=== PATIENT | male | born 1935 | race Two or more races ===

== ENCOUNTER 2023-10-08 10:52 | Inpatient (IN) | payer OTHER ==
[~2023-10-08] VITALS: Ht 167.6 cm; Wt 67.1 kg
[2023-10-08] MEDS ORDERED: HYZAAR 100-12.1 EACH PO (11:02)
[2023-10-08] MEDS ORDERED: ZETIA10 MG PO (11:02)
[2023-10-08] MEDS ORDERED: ZOCOR40 MG PO (11:02)
[2023-10-08] MEDS ORDERED: ADULT LOW DOSE81 M1 (11:02)
[2023-10-08] MEDS ORDERED: LABETALOL HCL100 MG PO (11:02)
[2023-10-08] MEDS ORDERED: 0.9 % SODIUM CHLORIDE 1,000 ML IV SCH (11:30)
[2023-10-08 12:01] LABS: HEMOGLOBIN 12.6 g/dL (13-16.00); MEAN CORPUSCULAR HEMOGLOBIN 30.9 pg (27.00-32.0); PLATELET COUNT 193 K/uL (150-450); RED BLOOD COUNT 4.06 M/uL (4.00-6.00); RED CELL DISTRIBUTION WIDTH 13.6 % (11.5-14.5)
[2023-10-08 12:27] LABS: PARTIAL THROMBOPLASTIN TIME 27.5 SECONDS (22.0-34.0); PROTHROMBIN TIME 10.5 SECONDS (9.0-11.5)
[2023-10-08 12:31] LABS: ALBUMIN 3.9 gm/dL (3.4-5.0); CALCIUM 9.4 mg/dL (8.5-10.1); CREATININE SERUM 1.41 mg/dL (0.70-1.30); GFR 47.43; GLOBULINA 2.9 G/DL (2.4-3.5); POTASSIUM 3.51 mEq/L (3.5-5.1); TOTAL PROTEIN 6.8 gm/dL (6.4-8.2)
[2023-10-08] MEDS ORDERED: RINGERS SOLUTION,LACTATED 1,000 ML IV SCH (13:00)
[2023-10-08 13:48] LABS: PH,URINE 5.5 (5.0-8.0); URINE APPEARANCE Cloudy; URINE BILIRRUBIN Negative (NEGATIVE); URINE BLOOD Negative; URINE COLOR Yellow; URINE GLUCOSE Negative (NEGATIVE); URINE LEUKOCYTE Negative; URINE NITRATE Negative; URINE PROTEIN Negative (NEGATIVE); URINE UROBILINOGEN 0.2 E.U./dl
[2023-10-08 13:49] LABS: URINE BACTERIA 8.8 uL (0.0-1933); URINE EPITHELIAL CELLS 9.8 uL (0.0-38.8); URINE RBC 4.3 uL (0.0-20.8); URINE WBC 2.6 uL (0.0-23.2)
[2023-10-08 14:57] LABS: COL ADP 143 SECONDS (56-102); COL EPI 239 SECONDS (82-175)
[2023-10-08] MEDS ORDERED: SIMVASTATIN 40 MG TABLET PO SCH (17:00)
[2023-10-08] MEDS ORDERED: FAMOTIDINE/PF 20 MG in 0.9 % SODIUM CHLORIDE 8 ML IV PUSH SCH (21:00)
[2023-10-08] MEDS ORDERED: LABETALOL HCL 100 MG TABLET PO SCH (21:00)
[2023-10-09 06:47] LABS: HEMATOCRIT 32.4 % (39.0-48.0); HEMOGLOBIN 11.2 g/dL (13-16.00); MEAN CELL VOLUME 91.8 fL (80.0-100.00); MEAN CORPUSCULAR HEMOGLOBIN 31.7 pg (27.00-32.0); MEAN CORPUSCULAR HGB CONC 34.5 g/dl (32.0-36.0); PLATELET COUNT 176 K/uL (150-450); RED BLOOD COUNT 3.53 M/uL (4.00-6.00); RED CELL DISTRIBUTION WIDTH 13.2 % (11.5-14.5)
[2023-10-09] MEDS ORDERED: FAMOTIDINE/PF 20 MG/2 ML VIAL ONE (06:48)
[2023-10-09 07:01] LABS: CALCIUM 9.1 mg/dL (8.5-10.1); CREATININE SERUM 1.24 mg/dL (0.70-1.30); GFR 55.02; MAGNESIUM 2.3 mg/dL (1.8-2.4); PHOSPHOROUS 2.9 mg/dL (2.5-4.9); POTASSIUM 3.7 mEq/L (3.5-5.1)
[2023-10-09] MEDS ORDERED: LOSARTAN/HYDROCHLOROTHIAZIDE 1 TAB TABLET PO SCH (09:00)
[2023-10-09] MEDS ORDERED: FAMOTIDINE/PF 20 MG in 0.9 % SODIUM CHLORIDE 8 ML IV PUSH SCH (09:00)
[2023-10-09] MEDS ORDERED: SOD FERRIC GLUC COMPLX/SUCROSE 62.5 MG in 0.9 % SODIUM CHLORIDE 50 ML IV SCH (09:00)
[2023-10-09] MEDS ORDERED: Cyanocobalamin/Mecobalamin 1 TAB.SL SL SCH (09:00)
[2023-10-09] MEDS ORDERED: SODIUM CHLORIDE 0.45 % 1,000 ML IV SCH (09:30)
[2023-10-10 08:57] LABS: COL EPI 226 SECONDS (82-175)
[2023-10-10] MEDS ORDERED: ONDANSETRON HCL 2 MG/ML VIAL IV PRN (12:00)
[2023-10-11 06:53] LABS: HEMATOCRIT 33.4 % (39.0-48.0); HEMOGLOBIN 11.5 g/dL (13-16.00); MEAN CELL VOLUME 91.6 fL (80.0-100.00); MEAN CORPUSCULAR HEMOGLOBIN 31.5 pg (27.00-32.0); MEAN CORPUSCULAR HGB CONC 34.4 g/dl (32.0-36.0); PLATELET COUNT 161 K/uL (150-450); RED BLOOD COUNT 3.65 M/uL (4.00-6.00); RED CELL DISTRIBUTION WIDTH 13.5 % (11.5-14.5)
[2023-10-11 07:01] LABS: CALCIUM 8.7 mg/dL (8.5-10.1); CREATININE SERUM 1.22 mg/dL (0.70-1.30); GFR 56.06; MAGNESIUM 1.7 mg/dL (1.8-2.4); PHOSPHOROUS 3.4 mg/dL (2.5-4.9); POTASSIUM 3.91 mEq/L (3.5-5.1)
[2023-10-11 07:35] LABS: COL EPI 145 SECONDS (82-175)
[2023-10-11] MEDS ORDERED: SOD FERRIC GLUC COMPLX/SUCROSE 62.5 MG/5 ML AMPUL IV ONE (07:56)
[2023-10-11] MEDS ORDERED: MAGNESIUM SULFATE IN WATER 50 ML IV ONE (10:15)
[2023-10-12] MEDS ORDERED: CEFTRIAXONE SODIUM 2,000 MG VIAL ONE (09:47)
[2023-10-12] MEDS ORDERED: METRONIDAZOLE/SODIUM CHLORIDE 500 MG/100 ML PIGGYBACK IV ONE (09:47)
[2023-10-12] MEDS ORDERED: CEFTRIAXONE SODIUM 2,000 MG in 0.9 % SODIUM CHLORIDE 50 ML IV ONE (10:00)
[2023-10-12] MEDS ORDERED: METRONIDAZOLE/SODIUM CHLORIDE 200 ML IV ONE (10:00)
[2023-10-12] MEDS ORDERED: LACTOBACILLUS ACIDOPHILUS 1 CAP CAP PO SCH (11:12)
[2023-10-12] MEDS ORDERED: TAMSULOSIN HCL 0.4 MG CAP PO SCH (11:12)
[2023-10-12] MEDS ORDERED: MORPHINE SULFATE 4 MG/ML CARTRIDGE IV PRN (11:15)
[2023-10-12] MEDS ORDERED: OxyCODONE HCL 5 MG TABLET (ROXICODONE) PO PRN (11:15)
[2023-10-12] MEDS ORDERED: SUGAMMADEX SODIUM 200 MG/2 ML VIAL IV ONE ×2 (11:16→11:30)
[2023-10-12] MEDS ORDERED: ACETAMINOPHEN 500 MG GEL..CAP PO SCH (12:00)
[2023-10-12] MEDS ORDERED: HYOSCYAMINE SULFATE 0.125 MG TAB.SUBL SL SCH (13:00)
[2023-10-12] MEDS ORDERED: ONDANSETRON HCL 2 MG/ML VIAL ONE (13:18)
[2023-10-12] MEDS ORDERED: GABAPENTIN 300 MG CAPSULE PO SCH (17:00)
[2023-10-12] MEDS ORDERED: METRONIDAZOLE/SODIUM CHLORIDE 500 MG/100 ML PIGGYBACK IV SCH (17:00)
[2023-10-12] MEDS ORDERED: CIPROFLOXACIN IN 5 % DEXTROSE 400 MG/200 ML PIGGYBAG IV SCH (21:00)
[2023-10-13 07:39] LABS: HEMATOCRIT 31.2 % (39.0-48.0); HEMOGLOBIN 10.7 g/dL (13-16.00); MEAN CORPUSCULAR HEMOGLOBIN 31.1 pg (27.00-32.0); MEAN CORPUSCULAR HGB CONC 34.2 g/dl (32.0-36.0); PLATELET COUNT 152 K/uL (150-450); RED BLOOD COUNT 3.43 M/uL (4.00-6.00); RED CELL DISTRIBUTION WIDTH 13.5 % (11.5-14.5)
[2023-10-13 07:54] LABS: ALBUMIN 3.3 gm/dL (3.4-5.0); CALCIUM 8.4 mg/dL (8.5-10.1); CREATININE SERUM 1.55 mg/dL (0.70-1.30); GFR 42.53; MAGNESIUM 2.2 mg/dL (1.8-2.4); PHOSPHOROUS 4.6 mg/dL (2.5-4.9); POTASSIUM 3.98 mEq/L (3.5-5.1)
[2023-10-14 07:06] LABS: CALCIUM 8.3 mg/dL (8.5-10.1); CREATININE SERUM 1.48 mg/dL (0.70-1.30); GFR 44.86; MAGNESIUM 2.1 mg/dL (1.8-2.4); PHOSPHOROUS 2.8 mg/dL (2.5-4.9); POTASSIUM 4.2 mEq/L (3.5-5.1)
[2023-10-14 07:44] LABS: HEMATOCRIT 32.9 % (39.0-48.0); HEMOGLOBIN 11.3 g/dL (13-16.00); MEAN CELL VOLUME 91.3 fL (80.0-100.00); MEAN CORPUSCULAR HEMOGLOBIN 31.4 pg (27.00-32.0); MEAN CORPUSCULAR HGB CONC 34.4 g/dl (32.0-36.0); PLATELET COUNT 144 K/uL (150-450); RED CELL DISTRIBUTION WIDTH 13.3 % (11.5-14.5)
[2023-10-15 07:06] LABS: HEMATOCRIT 31.2 % (39.0-48.0); HEMOGLOBIN 10.7 g/dL (13-16.00); MEAN CELL VOLUME 90.8 fL (80.0-100.00); MEAN CORPUSCULAR HEMOGLOBIN 31.2 pg (27.00-32.0); MEAN CORPUSCULAR HGB CONC 34.4 g/dl (32.0-36.0); PLATELET COUNT 144 K/uL (150-450); RED BLOOD COUNT 3.43 M/uL (4.00-6.00); RED CELL DISTRIBUTION WIDTH 13.5 % (11.5-14.5)
[2023-10-15 07:44] LABS: CALCIUM 8.4 mg/dL (8.5-10.1); CREATININE SERUM 1.26 mg/dL (0.70-1.30); GFR 54.01; POTASSIUM 3.75 mEq/L (3.5-5.1)
[2023-10-15] MEDS ORDERED: SIMETHICONE 125 MG CAPSULE PO SCH (10:31)
[2023-10-15] MEDS ORDERED: SOD FERRIC GLUC COMPLX/SUCROSE 62.5 MG in 0.9 % SODIUM CHLORIDE 50 ML IV SCH (15:17)
[2023-10-16] MEDS ORDERED: ACETAMINOPHEN500 M2 PO (12:44)
[2023-10-16] MEDS ORDERED: NEURONTIN300 MG PO (12:44)
== END 2023-10-16 14:22 | disposition home or self-care (01) | DRG 330 ==
LOC: ER 10:53 → SURH 13:18
PROVIDERS: General Practice; Internal Medicine Geriatric Medicine; Specialist; Surgery; ADMIT Surgery; ATTEND Surgery
PROC: B24BZZZ Ultrasonography of Heart with Aorta (ICD-10-PCS; 2023-10-08)
PROC: 0DTF4ZZ Resection of Right Large Intestine, Percutaneous Endoscopic Approach (ICD-10-PCS; principal; 2023-10-13)
PROC: 07BB4ZZ Excision of Mesenteric Lymphatic, Percutaneous Endoscopic Approach (ICD-10-PCS; 2023-10-13)
PROC: 0DNW4ZZ Release Peritoneum, Percutaneous Endoscopic Approach (ICD-10-PCS; 2023-10-13)
DX: C18.3 Malignant neoplasm of hepatic flexure (principal); K56.50 Intestinal adhesions [bands], unspecified as to partial versus complete obstruction; N17.9 Acute kidney failure, unspecified; D64.9 Anemia, unspecified; I35.0 Nonrheumatic aortic (valve) stenosis; E78.5 Hyperlipidemia, unspecified; I11.0 Hypertensive heart disease with heart failure; I50.9 Heart failure, unspecified; R59.0 Localized enlarged lymph nodes; Z20.822 Contact with and (suspected) exposure to COVID-19